=== PATIENT | female | born 1995 | race Caucasian/White ===

== ENCOUNTER 2021-03-06 15:19 | Outpatient (CLI) | payer OTHER ==
[2021-03-06] MEDS ORDERED: LACTATED RINGERS 1,000 ML IV ONE (15:45)
[2021-03-06 16:02] LABS: Appearance,Urine Clear (Clear); Bacteria,Urine Few /hpf; Bilirubin,Urine Negative (Negative); Blood,Urine Negative (Negative); Color,Urine Light Yellow; Glucose,Urine (UA) Negative (Negative); Ketones,Urine Negative (Negative); Leukocyte Esterase,Urine Moderate (Negative); Mucus,Urine Rare /hpf; Nitrite,Urine Negative (Negative); PH, Urine 7.5 (5.0-8.0); Protein,Urine Negative (Negative); RBC,Urine 2 /hpf (0-5); Specific Gravity,Urine 1.006 (1.001-1.035); Squamous Epithelial Cell,Urine 4 /hpf (0-4); Urobilinogen,Urine <2.0 mg/dL (<2.0); WBC,Urine 4 /hpf (0-5)
[2021-03-06 16:05] LABS: Creatinine,Urine Random 20.4 mg/dL; Protein/Creatinine Ratio,Urine 0.833
[2021-03-06 16:14] LABS: Basophils % (A) 0 %; Eosinophils # (A) 0.1 k/uL (0-0.7); Eosinophils % (A) 1 %; HCT 33.6 % (34.0-46.0); HGB 11.4 gm/dL (11.4-16.0); Lymphocytes # (A) 1.6 k/uL (1.0-4.8); Lymphocytes % (A) 14 %; MCHC 33.9 g/dL (31.0-37.0); MCV 97.3 fL (80.0-100.0); Mean Platelet Volume 9.6; Monocytes # (A) 0.7 k/uL (0-1.0); Monocytes % (A) 6 %; Neutrophils # (A) 8.7 k/uL (1.3-7.7); Neutrophils % (A) 76 %; Platelet Count 263 k/uL (150-450); RBC 3.45 m/uL (3.80-5.40); WBC 11.5 k/uL (3.8-10.6)
[2021-03-06 16:19] LABS: Amphetamine Screen,Urine Not Detected (NotDetected); Benzodiazepines Screen,Urine Not Detected (NotDetected); Cocaine Screen,Urine Not Detected (NotDetected); Opiate Screen,Urine Not Detected (NotDetected); Phencyclidine Screen,Urine Not Detected (NotDetected); Urn Cannabinoid Scrn Not Detected (NotDetected)
[2021-03-06 16:20] LABS: Barbiturate Screen,Urine Not Detected (NotDetected); Methadone Screen, Urine Not Detected (NotDetected); Oxycodone Screen, Urine Not Detected (NotDetected); Tricyclic Antidepressant,Urine Not Detected (NotDetected)
[2021-03-06 16:29] LABS: ALT 14 U/L (4-34); AST 22 U/L (14-36); African American GFR (CKD) >90 (>60 ml/min/1.73 sqM); Blood Urea Nitrogen 2 mg/dL (7-17); LDH 521 U/L (313-618); Non-African American GFR(CKD) >90 (>60 ml/min/1.73 sqM); Uric Acid 3.6 mg/dL (3.7-7.4)
[2021-03-06] MEDS ORDERED: BETAMET ACET-BETAMETH SOD PHOS 6 MG/ML MDV IM SCH (16:30)
[2021-03-06] MEDS ORDERED: CALCIUM GLUCONATE 1 GM/10 ML VIAL IV PRN (16:36)
[2021-03-06] MEDS ORDERED: MAGNESIUM SULFATE-WATER PMX 4 GM in WATER FOR INJECTION 1 100ML.BAG IVPB ONE (16:45)
--- NOTE | 2021-03-06 16:45 | P.HPOB ---
History of Present Illness H&P Date: 03/06/21 Chief Complaint: headache, vision changes 25 year old presents at 32 weeks 1 day with headache, spots in the vision and increased BP at her rehab facility. She has a history of heroin and methamphetamine use at the beginning of the but she did stop this in October when she went to long term for a few months. Over the last week she's been staying at a rehab facility called [facility]. She has a history of a previous having preeclampsia needing to be delivered at 37 weeks via . heart tones are 145 with moderate variability and reactive. Category 1. We did do preeclamptic labs here and hasn't she has a pre-C ratio of 0.833. Her initial blood pressure on admission was 175/83 did come down to 141/65. Has been ranging from 126-135 over 80s. I spoke with Dr. Harpal Link [facility] who is willing to accept transfer of care for possible preeclampsia. Review of Systems All systems: negative Constitutional: Denies chills, Denies fever Eyes: denies blurred vision, denies pain Ears, nose, mouth and throat: Reports headache, Denies sore throat Cardiovascular: Denies chest pain, Denies shortness of breath Respiratory: Denies cough Gastrointestinal: Denies abdominal pain, Denies diarrhea, Denies nausea, Denies vomiting Genitourinary: Denies dysuria, Denies hematuria Musculoskeletal: Denies myalgias Integumentary: Denies pruritus, Denies rash Neurological: Denies numbness, Denies weakness Psychiatric: Denies anxiety, Denies depression Endocrine: Denies fatigue, Denies weight change Past Medical History Additional Past Medical History / Comment(s): Depression and addiction History of Any Multi-Drug Resistant Organisms: MRSA Date of last positivie culture/infection: 2003 MDRO Source:: right arm Past Surgical History: Section Past Anesthesia/Blood Transfusion Reactions: No Reported Reaction Past Psychological History: Depression Smoking Status: Former smoker Past Drug Use History: Heroin, Methamphetamine (Has not used since October 2020) Medications and Allergies Home Medications Medication Instructions Recorded Confirmed Type Aspirin 81 mg PO DAILY 03/06/21 03/06/21 History DULoxetine HCL [Cymbalta] 60 mg PO DAILY 03/06/21 03/06/21 History Pnv No.95/Ferrous Fum/Folic AC 1 each PO DAILY 03/06/21 03/06/21 History [ Multivitamin Tablet] lamoTRIgine [LaMICtal] 25 mg PO DAILY 03/06/21 03/06/21 History Allergies Allergy/AdvReac Type Severity Reaction Status Date / Time Fish Containing Products Allergy Anaphylaxis Verified 03/06/21 15:41 [Fish] Exam Osteopathic Statement: *. No significant issues noted on an osteopathic structural exam other than those noted in the History and Physical/Consult. Intake and Output 03/06/21 03/06/21 03/06/21 06:59 14:59 22:59 Other: Weight 105.233 kg Heart: Regular rate and rhythm Lungs: Clear to auscultation bilaterally Abdomen: Soft, nontender Extremities: Negative Homans sign Results Result Diagrams: 03/06/21 15:57 03/06/21 15:57 Abnormal Lab Results - Last 24 Hours (Table) 03/06/21 03/06/21 03/06/21 Range/Units 15:40 15:57 15:57 WBC 11.5 H (3.8-10.6) k/uL RBC 3.45 L (3.80-5.40) m/uL Hct 33.6 L (34.0-46.0) % Neutrophils # 8.7 H (1.3-7.7) k/uL BUN 2 L (7-17) mg/dL Creatinine 0.38 L (0.52-1.04) mg/dL Uric Acid 3.6 L (3.7-7.4) mg/dL Ur Leukocyte Esterase Moderate H (Negative) Urine Bacteria Few H (None) /hpf Urine Mucus Rare H (None) /hpf Assessment and Plan (1) Preeclampsia Current Visit: Yes Status: Acute Code(s): O14.90 - UNSPECIFIED PRE- ECLAMPSIA, UNSPECIFIED TRIMESTER SNOMED Code(s): 248524144 (2) 32 weeks gestation of Current Visit: Yes Status: Acute Code(s): Z3A.32 - 32 WEEKS GESTATION OF SNOMED Code(s): 5583525 (3) History of drug abuse Current Visit: Yes Status: Acute Code(s): F19.11 - OTHER PSYCHOACTIVE SUBSTANCE ABUSE, IN REMISSION SNOMED Code(s): 280033942 (4) Previous section Current Visit: Yes Status: Acute Code(s): Z98.891 - HISTORY OF UTERINE SCAR FROM PREVIOUS SURGERY SNOMED Code(s): 170801518 Plan: 1. Betamethasone to mature baby's lungs in case of delivery 2. Magnesium sulfate for seizure prevention 3. Had a long discussion with the patient regarding what preeclampsia is and what this diagnosis means for her and her baby. I advised her that we do not deliver babies at this hospital 135 weeks gestation and she will need to be transferred to [facility] in [place] 4. I discussed the case with Dr. Anup Natarajan who is willing to accept transfer of this patient for her preeclampsia and status
[2021-03-06 16:52] VITALS: RESP 16; TEMP 97.8
[2021-03-06] MEDS ORDERED: MAGNESIUM SULFATE-WATER PMX 20 GM in WATER FOR INJECTION 1 500ML.BAG IV SCH (17:10)
[2021-03-06 17:22] VITALS: BP 126/73; PULSE 123
== END 2021-03-06 17:38 ==
LOC: FBPOP 15:19
PROVIDERS: ATTEND Obstetrics & Gynecology
DX: O14.93 Unspecified pre-eclampsia, third trimester (principal); O99.343 Other mental disorders complicating pregnancy, third trimester; F15.11 Other stimulant abuse, in remission; F11.11 Opioid abuse, in remission; F32.9 Major depressive disorder, single episode, unspecified; Z3A.32 32 weeks gestation of pregnancy; Z87.891 Personal history of nicotine dependence; Z91.013 Allergy to seafood
CPT/HCPCS: 59025; 96365; 96372; 82570; 84156; 82565; 83615; 84450; 84460; 84520; 84550; 85025; 81001; 80306; G0463; J3475 ×2; J0702; 99215